=== PATIENT | female | born 1990 | race Two or more races ===

== ENCOUNTER 2025-01-03 15:30 | Emergency (ER) | payer MEDICAID, SELFPAY ==
[2025-01-03 15:48] VITALS: BP 130/84; PULSE 80; RESP 20; TEMP 36.8; O2SAT 97; BMI 52.4
--- NOTE | 2025-01-03 15:54 | EKG_ITS ---
[facility] Test Date: 2025-01-03 Pat Name: SWETA IZQUIERDO Department: Room: - Gender: Female Detacker: : 1990 Requested By: Roverto Lopez Order Number: [id number] Reading MD: Roverto Lopez Measurements Intervals [place] Rate: 74 P: 40 MD: 177 QRS: 59 QRSD: 90 T: 52 QT: 370 QTc: 411 Interpretive Statements SINUS RHYTHM Compared to ECG 10/31/2023 20:24:14 No significant changes /store/S0/[id number].pdf
--- NOTE | 2025-01-03 15:54 | XR_ITS ---
Examination: PA lateral chest 2 views TECHNIQUE: Upright PA lateral chest 2 views Exam date and time: January 03, 2025 1617 hours INDICATIONS: Chest pain radiating to the right upper back today. FINDINGS: Normal heart size Lungs are clear The osseous structures are intact IMPRESSION: No active disease
--- NOTE | 2025-01-03 15:55 | PD.EDRME ---
Rapid Medical Screening Exam E Arrival date/time: 01/03/25 15:30 34-year-old female with past medical history to include CHF presents complaint of awakening 2 hours ago with shortness of breath and chest pain that radiates to her back Chief Complaint: Chest Pain Time Seen by Provider: 01/03/25 15:50 Vital signs: Vital Signs Temperature 98.2 F 01/03/25 15:48 Pulse Rate 80 01/03/25 15:48 Respiratory Rate 20 01/03/25 15:48 Blood Pressure 130/84 01/03/25 15:48 Pulse Oximetry (%) 97 01/03/25 15:48 Oxygen Delivery Method Room Air 01/03/25 15:48
[2025-01-03 16:11] LABS: Collection Type, Urine Clean Catch
[2025-01-03 16:18] LABS: Bilirubin,Urine Negative (Negative); Blood,Urine Negative (Negative); Clarity,Urine Clear (Clear/Hazy); Color,Urine Lt-Yellow (Lt Yel-Yel); Glucose, Urine Negative (Negative); Ketones,Urine Negative (Negative); Leukocyte Esterase,Urine Negative (Negative); Nitrite,Urine Negative (Negative); PH,Urine 6.5 (5.0-7.0); Protein,Urine Negative (Neg - Trace); RBC,Urine 1 /hpf (0-3); Specific Gravity,Urine 1.026 (1.001-1.035); Squamous Epithelial Cell,Urine 1 /hpf (0-5); Urobilinogen,Urine Negative mg/dL (0.0-1.0); WBC,Urine 1 /hpf (0-5)
[2025-01-03 16:22] LABS: HCG Qualitative,Urine Negative
[2025-01-03 16:28] LABS: Amphetamine/Methamp Scrn,U Negative (Negative); Barbiturate Screen,Urine Negative (Negative); Benzodiazepines Screen,Urine Negative (Negative); Benzoylecgonine Screen, Ur Negative (Negative); Fentanyl Screen,Urine Negative (Negative); Opiate Screen,Urine Negative (Negative); THC Screen,Urine Negative (Negative)
[2025-01-03 16:54] LABS: Basophils % (Auto) 0 % (0-2.5); Eosinophils # (Auto) 0.2 Thou/mm3 (0.0-0.5); Eosinophils % (Auto) 2 % (0-10); Hematocrit 35.5 % (36.0-46.0); Hemoglobin 11.7 g/dL (12.0-16.0); Immature Granulocytes % (Auto) 1 % (0-0); Immature Granulocytes Auto 0.05 Thou/mm3 (0.00-0.00); Lymphocytes # (Auto) 2.4 Thou/mm3 (1.0-4.8); Lymphocytes % (Auto) 23 % (10-50); Mean Corpuscular Hemoglobin 26.4 pg (25.0-35.0); Mean Corpuscular Volume 80 fL (80-100); Monocytes # (Auto) 0.7 Thou/mm3 (0.0-0.8); Monocytes % (Auto) 7 % (0-12); Neutrophils # (Auto) 7.3 Thou/mm3 (1.8-7.7); Neutrophils % (Auto) 68 % (37-80); Nucleated Red Blood Cell % 0 /100 WBC (0); Platelet Count 365 Thou/mm3 (140-440); RDW Standard Deviation 41.6 fL (36.4-46.3); Red Blood Count 4.44 Miln/mm3 (4.00-5.20); White Blood Count 10.7 Thou/mm3 (3.6-11.0)
[2025-01-03 17:08] LABS: B-Type Natriuretic Peptide < 20 pg/mL (0-100)
[2025-01-03 17:15] LABS: Alanine Aminotransferase 23 U/L (10-49); Albumin, Serum 4.1 gm/dL (3.5-5.0); Albumin/Globulin Ratio 1.2 (1.2-2.2); Alkaline Phosphatase 122 U/L (46-116); Anion Gap 10 (7-16); Aspartate Amino Transferase 17 U/L (0-34); BUN/Creatinine Ratio 22 Ratio (12-20); Bilirubin,Total 0.2 mg/dL (0.3-1.2); Blood Urea Nitrogen 13 mg/dL (9-23); Calcium 9.2 mg/dL (8.3-10.6); Calcium (Corrected) 9.2 mg/dL (8.5-10.1); Carbon Dioxide 24.9 mMol/L (20.0-31.0); Chloride 105 mMol/L (98-107); Creatinine (Component) 0.6 mg/dL (0.6-1.3); Estimated Creatinine Clearance 152.4 mL/min (>60); Globulin 3.3 gm/dL (2.3-3.5); Glucose 135 mg/dL (74-106); Osmolality,Calculated 281 (275-295); Potassium 3.9 mMol/L (3.4-5.1); Sodium 140 mMol/L (136-145); Total Protein 7.4 gm/dL (5.7-8.2); Troponin I < 0.020 ng/mL (0.0-0.045); eGFR > 60 See Note
[2025-01-03 18:23] LABS: INR 0.9 (0.9-1.3); Partial Thromboplastin Time 24.5 Seconds (22.0-36.0)
--- NOTE | 2025-01-03 19:21 | PD.EDABDPN ---
ED Abdominal Pain RME/HPI General Chief Complaint: Chest Pain Stated complaint: CHEST PAIN WITH HX OF CHF; [facility] SENT Time seen by provider: 01/03/25 15:50 Arrival date/time: 01/03/25 15:30 CC: Chest pain left anterior upper radiates to the back onset at 2 AM this morning intermittent nature now completely gone. Patient states she is to continue to have back pain patient denies fever chills chest pain shortness of breath or difficulty breathing is worried because she had CHF with the delivery of her last child 14 years ago. Patient denies secondary to being inactive. RME / HPI RME / HPI narrative: 01/03/25 15:30 34-year-old female with past medical history to include CHF presents complaint of awakening 2 hours ago with shortness of breath and chest pain that radiates to her back Related Data Home Medications ?Medication ?Instructions ?Recorded ?Confirmed [id number] 1 mg tab PO 07/13/23 tablet Previous Rx's ?Medication ?Instructions ?Recorded furosemide 20 mg tablet (Lasix) 20 mg PO QAM #7 tabs 11/02/23 meloxicam 7.5 mg tablet 7.5 mg PO QDAY #10 tabs 01/03/25 Allergies Allergy/AdvReac Type Severity Reaction Status Date / Time No Known Allergies Allergy Verified 01/03/25 15:32 Review of Systems Review of Systems Narrative Review of Systems: GEN: No fever, no chills, no weight loss EYES: No discharge, no visual changes, no pain HEENT: No ear pain, no congestion, no sore throat PULM: No shortness of breath, no cough, no congestion CV: + chest pain, no dyspnea on exertion, no palpitations GI: No nausea, no vomiting, no diarrhea, no pain, no constipation : No frequency, no urgency, no dysuria MUSC/SKEL: No joint pain, no back pain SKIN: No rash PSYCH: No hallucinations, no depression HEME/LYMPH: No easy bleeding or bruising tendencies NEURO: No weakness, no headache Past Medical History Past Medical History NEUROLOGIC: Negative Neurological Disorders or Seizures CARDIAC: Positive Hypertension (with ); Negative Cardiac Disorders or Congestive Heart Failure RESPIRATORY: Negative Chronic Obstructive Pulmonary Disease (COPD) or Asthma (pneumonia) GASTROINTESTINAL: Negative Gastrointestinal Disorders GENITOURINARY: Negative Genitourinary Disorders or Renal Disease REPRODUCTIVE: Positive Gonorrhea, Previous Pregnancies and Syphilis MUSCULOSKELETAL: Negative Musculoskeletal Disorders or Scoliosis ENDOCRINE: Positive Endocrine Disorders and Diabetes Mellitus Type 2 (type 2); Negative Diabetes Mellitus Type 1 HEMATOLOGIC: Negative Sickle Cell Disease PSYCHO/SOCIAL: Positive Recreational Drug Use OTHER HISTORY: Positive Hepatitis C; Negative Autoimmune Disease, Blood Transfusions, Blood Transfusion Reaction or Anesthesia Reactions Family History FAMILY HISTORY: Positive Family Respiratory Disorders (asthma father), Family Cardiac Disorders (heart failure) and Family Gastrointestinal Problems (father); Negative Family Psychiatric Problems, Family Cancer, Family Surgery or Family Anesthesia Reaction Surgical History SURGICAL: Positive Section Social History SMOKING STATUS: Never smoker SECOND HAND EXPOSURE: No SUBSTANCE USE: methamphetamine ED Exam Narrative Physical exam: [General: Morbidly obese not in any acute distress Head normocephalic HEENT: Within acceptable limits Neck is supple nontender Chest equal chest rise nontender to palpation Respiratory: Clear to auscultation no wheezes crackles or rubs CV: Rate rhythm is regular no murmurs rubs or clicks Abdomen is grossly distended secondary to body habitus soft nontender no masses positive bowel sounds all 4 quadrants Back: No CVA tenderness no spinous process tenderness from cervical spine thoracic and lumbar spine Skin: Intact no petechiae rash induration ulceration or crepitus Extremities: Moving all extremity against resistance cap refill less than 2 seconds neurosensory intact Neuro: Awake alert oriented x3 Glascow coma 15 no focal deficits] Course Quality Measures none Orders Category Date Time Status EKG (ED ONLY) *Do not use* NOW Care 01/03/25 15:54 Completed EKG (ED Only) Stat Exams 01/03/25 15:54 Draft XR chest 2V Stat Exams 01/03/25 15:54 Completed B-Type Natriuretic Peptide Stat Lab 01/03/25 16:33 Completed CBC Stat Lab 01/03/25 16:33 Completed Comprehensive Metabolic Panel Stat Lab 01/03/25 16:33 Completed Drug Screen,Urine Stat Lab 01/03/25 16:02 Completed HCG Qualitative,Urine Stat Lab 01/03/25 16:02 Completed Magnesium Stat Lab 01/03/25 16:33 Completed Partial Thromboplastin Time Stat Lab 01/03/25 16:33 Completed Prothrombin Time with INR Stat Lab 01/03/25 16:33 Completed Troponin I Stat Lab 01/03/25 16:33 Completed Urinalysis Stat Lab 01/03/25 16:02 Completed Vital Signs Vital signs: Vital Signs Temperature 98.2 F 01/03/25 15:48 Pulse Rate 80 01/03/25 15:48 Respiratory Rate 20 01/03/25 15:48 Blood Pressure 130/84 01/03/25 15:48 Pulse Oximetry (%) 97 01/03/25 15:48 Oxygen Delivery Method Room Air 01/03/25 15:48 Abdominal Pain MDM Patient data External records reviewed:: [facility] previous records Clinical information provided by:: patient Social determinants that could affect healthcare access:: none Patient has the following chronic illnesses:: Morbid obesity How is presenting disease/condition affected by chronic disease/condition?: uneffected by Evaluation data The following diagnostics were reviewed and interpreted by me:: lab results and radiology exam(s) Lab and/or radiology exams considered but not ordered:: CBC shows no acute leukocytosis anemia thrombocytopenia Coags within acceptable limits CMP shows no acute electrolyte imbalances other than a glucose of 135 no renal impairment transaminitis or T. bili elevation Troponin is negative BNP is negative Urine is negative UDS is negative Chest x-ray is unremarkable for any acute finding. EKG performed at 1557 shows a ventricular rate of 74 [place] interval 177 QRS of 9 0 QTc of 397 this is sinus rhythm. Interpretation Summary: All laboratory results are unremarkable and the pain is reproducible with palpation. Immediately upon discussion of discharge patient is requesting a school note for class on child abuse that patient missed today. Patient is not in any acute distress. Medications / Prescriptions Medications or Prescriptions considered but not ordered:: None Medication administrations:: None Consultations Consultation(s) initiated? (list below): No Diagnosis Differential diagnosis abdominal pain: other Most likely diagnosis given after review of the tests above:: Chest wall pain, back pain Admission Indicated Admission indicated?: not indicated Admission Request Was there a request for admission?: No Disposition Plan Disposition Plan: Discharge Discharge Attestation Discharge Attestation: The patient and all family members were given an opportunity to ask questions and understood the discharge instructions. Discharge instructions specifically effects, indications for sooner follow up or return to the emergency department, and the expected course of current diagnosis. Patient condition: Stable Discharge Plan Plan Patient Disposition: HOME (Self Care) Patient condition on transfer: Stable Prescriptions/Referrals Prescriptions/Med Rec: New meloxicam 7.5 mg tablet 7.5 mg PO QDAY Qty: 10 0RF No Action [id number] 1 mg Tablet PO furosemide [Lasix] 20 mg tablet 20 mg PO QAM Qty: 7 0RF Referrals: Braulio Kraus MD [Physician] - In 1 week No Primary/Family,Physician [Primary Care Provider] - In 1 week Problem List Clinical Impression: Chest pain, Morbid obesity Patient/Caregiver Discharge Instructions Education Materials: ED Chest Pain, Uncertain Cause Print Language: Indian Stand Alone Forms: [place] Award Info., Work/School Release, Patient Portal Info Letter 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
== END 2025-01-03 19:33 | disposition home or self-care (01) ==
PROVIDERS: Physician Assistant; Emergency Provider Emergency Medicine
DX: R07.89 Other chest pain (principal); E66.01 Morbid (severe) obesity due to excess calories; Z68.43 Body mass index [BMI] 50.0-59.9, adult
CPT/HCPCS: 36415; 71046; 80053; 80307; 81001; 81025; 83735; 83880; 84484; 85025; 85610; 85730; 93005; 99283